=== PATIENT | female | born 1940 | race Caucasian/White ===

== ENCOUNTER 2018-05-11 01:27 | Emergency (ER) | payer OTHER ==
[~2018-05-11] VITALS: Ht 154.9 cm; Wt 52.2 kg
[2018-05-11 01:45] VITALS: BP_SYST 155
[2018-05-11] MEDS ORDERED: ACETAMINOPHEN 500 MG TABLET PO ONE (02:00)
[2018-05-11 03:30] VITALS: BP_SYST 155
== END 2018-05-11 03:30 | disposition home or self-care (01) ==
LOC: SED 01:27
DX: S52.502A Unspecified fracture of the lower end of left radius, initial encounter for closed fracture (principal); W01.0XXA Fall on same level from slipping, tripping and stumbling without subsequent striking against object, initial encounter; Y93.89 Activity, other specified; Y92.89 Other specified places as the place of occurrence of the external cause; Y99.8 Other external cause status
CPT/HCPCS: 99283